=== PATIENT | female | born 1930 | race Caucasian/White ===

== ENCOUNTER 2017-01-06 08:45 | Emergency (ER) | payer MEDICARE ==
[~2017-01-06] VITALS: Ht 168.9 cm; Wt 87.3 kg
[~2017-01-06 08:45] MED LIST: ANTIOXIDENT PO; ASPI-973 PO; CALC-140 PO; CINN500C14 PO; FLUT9.9S NS; LEVO75TA4 PO; MULT1CAP33 PO; OXYB5TAB10 PO; PYR50 PO
[2017-01-06 08:47] VITALS: BP 137/76; PULSE 69; RESP 16; O2SAT 96
--- NOTE | 2017-01-06 09:19 | ED.REPORT ---
HPI-Extremity Problem Upper Date of Service Jan 06, 2017 ED Provider: Priscila Goldstein MD Patient is an 86 year old female with a hx of multiple cancers who presents to the ED complaining of R shoulder pain onset 2 days down. Her pain radiates down her R arm to her elbow. Associated symptoms include globalized weakness. Patient reports she was moving [employer] decorations out of her shed 3 days ago. She denies neck pain, back pain, falling, chest pain, SOB, nausea, vomiting, fever, diarrhea, or any other symptoms. She took 2 Vicodin at 0800 this morning without relief. Nursing Notes Stated Complaint: RT SHOULDER PAIN Chief Complaint: Extremity Trauma Nursing Notes Reviewed: Yes Allergies: Coded Allergies: No Known Allergies (Verified , 02/22/15) Scheduled ([antioxident capsule]) CAPSULE PO DAILY Aspirin (Aspirin) 81 Mg Tablet 81 MG PO DAILY Calcium Carbonate/Vitamin D3 (Calcium + Vitamin D Tablet) 1 Each Tablet 1 EACH PO DAILY Cinnamon Bark (Cinnamon) 500 Mg Capsule 500 MG PO DAILY Fluticasone Propionate (Flonase Allergy Relief) 50 Mcg/Actuation [place].susp 9.9 ML NS DAILY Levothyroxine (Levothyroxine) 75 Mcg Tablet 75 MCG PO DAILY Multivitamin (Multivitamins) 1 Each Capsule 1 EACH PO DAILY Oxybutynin Chloride (Oxybutynin Chloride) 5 Mg Tablet 5 MG PO DAILY Pyridoxine (Vitamin B-6) 50 Mg Tablet 50 MG PO DAILY General Time Seen by MD: 09:18 Chief Complaint Shoulder injury right Hx Obtained From: Patient, Spouse Arrived By: Walk-in Onset Occurred: 2 days ago Symptom Duration: Since onset Location: : Arm right: Elbow right: Shoulder right Quality: Painful Severity: Current: Moderate Severity: Maximum: Moderate Exacerbated by: Range of motion Relieved by: Rest Immunizations: Unknown Recent Healthcare: No recent doctor visit, No recent hospitalization Past Medical History Past Medical History multiple cancers including: breast, colon, and thyroid thyroid disease trigger thumbs Past Surgical History partial thyroidectomy Eye surgery x2 with 1 implant partial mastectomy Reports: Cholecystectomy, Hysterectomy Smoking History Former Smoker Social History Other Social History: Good social support, Ambulatory Status Independent Review of Systems Review of Systems Note: -recent falls Constitutional: Reports: Weakness - generalized, Denies: Fever Musculoskeletal: Reports: Extremity pain, Joint pain, Denies: Back pain, Neck pain Complete sys rev & neg: except as marked. Respiratory: Denies: Shortness of breath Cardiovascular: Denies: Chest pain GI: Denies: Diarrhea, Nausea, Vomiting Physical Exam Initial Vital Signs Vital Signs (First) Date Time Temp Pulse Resp B/P Pulse Ox O2 Delivery O2 Flow Rate FiO2 01/06/17 08:47 37.4 69 16 137/76 96 Room Air Initial VS: Reviewed, Vital signs normal Head / Eyes: Atraumatic, Normocephalic Skin: Warm, Dry Neurologic: Alert, Oriented, Nonfocal Psychiatric: Mood/affect normal, Behavior normal, Normal thought content General/Constitutional: Awake, Alert Neck: Atraumatic, Supple, Full range of motion Cervical spine movement normal, not limited by pain, does not reproduce pain No occipital insertion tenderness Respiratory / Chest: Atraumatic, Breath sounds NL, Breath sounds = bilat, No respiratory distress Cardiovascular: Heart rate NL, Regular rhythm, Heart sounds NL Upper Extremity / MS: Atraumatic Tenderness with internal and external rotation of shoulder. No pain with biceps flexion. No rash or skin cahgne Abdomen: Atraumatic, Soft, Non-tender, BS normoactive Back: Atraumatic Tender with spasm in the R trapezius. Anterior deltoid tenderness. Lower Extremity / Pelvis / MS: No edema Interpretation & Diagnostics Lab Results Interpretation Result Diagram: 01/06/17 1005 01/06/17 1005 Test 01/06/17 10:05 White Blood Count 9.5th/mm3 (3.8-10.1) Red Blood Count 4.25mil/mm3 (3.90-5.20) Hemoglobin 13.9g/dL (12.0-15.6) Hematocrit 40.6% (35.0-46.0) Mean Corpuscular Volume 95.5fL (81-100) Mean Corpuscular Hemoglobin 32.7pg (27.0-35.0) Mean Corpuscular Hemoglobin Concent 34.2% (32.0-37.0) Red Cell Distribution Width 13.2% (12.3-15.4) Platelet Count 139bil/L (150-400) Neutrophils (%) (Auto) 80.9% (40-74) Lymphocytes (%) (Auto) 8.6% (14-46) Monocytes (%) (Auto) 9.2% (4-12) Eosinophils (%) (Auto) 0.8% (0-5) Basophils (%) (Auto) 0.3% (0-3) Erythrocyte Sedimentation Rate 5mm/hr (0-40) Sodium Level 139mEq/L (134-144) Potassium Level 3.9mEq/L (3.5-5.2) Chloride Level 102mEq/L (97-108) Carbon Dioxide Level 20mmol/L (18-29) Blood Urea Nitrogen 12mg/dL (8-27) Creatinine 0.73mg/dL (0.57-1.00) Estimat Glomerular Filtration Rate 109mL/min (>59) Glucose Level 101mg/dL (60-99) Calcium Level 8.7mg/dL (8.5-10.1) Total Bilirubin 0.8mg/dL (0.0-1.2) Aspartate Amino Transf (AST/SGOT) 21U/L (0-50) Alanine Aminotransferase (ALT/SGPT) 12U/L (0-32) Alkaline Phosphatase 48U/L (25-165) Troponin T 0.010ug/L (0.0-0.011) C-Reactive Protein 1.9mg/dL (0.0-0.5) Total Protein 7.0g/dL (6.4-8.4) Albumin 3.9g/dL (3.4-5.0) ECG Interpretation ECG Interpretation: Sinus rate 78 no ischemia Time: 10:32 Interpreted by: ED physician X-Ray Chest Interpretation Chest Xray Interpretation: IMPRESSION: 1. No acute cardiopulmonary abnormality. 2. Surgical clips, unchanged. 3. Osteoarthritis both shoulders. Dictated by: Juaquin Ho M.D. on 01/06/2017 at 10:42 Approved by: Juaquin Ho M.D. on 01/06/2017 at 10:43 View: Portable, 1 view Interpretation / Wet Read by: Interpret - Radiologist X-Ray Interpretation Xray Interpretation: IMPRESSION: 1. No acute bony abnormality. 2. Osteoarthritis. Dictated by: Juaquin Ho M.D. on 01/06/2017 at 10:40 Approved by: Juaquin Ho M.D. on 01/06/2017 at 10:42 X-Ray Ordered: Shoulder right Interpretation / Wet Read by: Interpret - Radiologist Procedures Procedure Notes: Right shoulder steriod injection Indication: pain Verbal informed consent obtained 0.4 mL of lidocaine topically to the anterior shoulder Attempted aspiration of shoulder joint with 18-gauge needle- no return of fluid 40 mg of Kenalog and 1 mL of 1% lidocaine were injected into the right shoulder joint anterior approach without complication. Shoulder was much more mobile with significantly reduced pain within minutes of injection Patient tolerated the procedure well No blood loss Re-Eval/Medical Decision Re-Evaluation/Progress : Time of Eval: 11:46 Re-Evaluation/Progress Note: Rechecked pt who is feeling much better . Discussed lab, CT, and EKG results. Discussed plan for discharge. Patient understands and agrees with plan. All questions addressed at this time. Counseled Regarding: Diagnosis, Lab results, Need for follow-up, When/why to return to ED Discharge & Departure Impression: Primary Impression: Bursitis of shoulder, right Ruled Out: STEMI (ST elevation myocardial infarction), Septic joint, Osteolytic lesion due to metastasis, Multiple lesions of metastatic malignancy, Pneumothorax Discharge Condition All VS Reviewed: Yes Condition: Stable Additional Instructions: I think that you are right in that you injured your shoulder creating some bursitis and pain due to the repetitive movement and lifting you are doing this weekend Thank you for letting me be thorough and rule out all of the life-threatening reasons that you could have acute shoulder pain. I do not find evidence for heart attack, recurrent cancer, collapsed lung ,or acute joint infection I injected Kenalog (steroid)with some lidocaine (numbing medication) into the joint. Seemed to feel better immediately due to the numbing medication which makes me hopeful that the steroid is also going to be very helpful. If you feel that you are getting worse, develop any redness in that shoulder, or develop any new symptoms please return to the ER or talk with your primary care doctor I hope it gets better quickly Referrals: Isadora Matthews (PCP) [place] Attestation Portions of this note were transcribed by Rico Trujillo. I, Dr. Goldstein personally performed the history, physical exam and medical decision-making; I reviewed and confirmed the accuracy of the information in the transcribed note. Signed by: Jocelyne Swan, 01/06/17 copies to: Isadora Matthews Shawna L MD Jan 06, 2017 09:19 RICO TRUJILLO Jan 06, 2017 09:44
[2017-01-06] MEDS ORDERED: Triamcinolone Acet 40 mg/mL 5 mL Inj INTRARTICU ONE (09:50)
[2017-01-06] MEDS ORDERED: Ketorolac 15 mg/mL Inj IVPUSH ONE (09:50)
[2017-01-06 10:18] VITALS: BP 141/71; PULSE 76; RESP 14; O2SAT 94
[2017-01-06 10:18] LABS: BASOPHILS % (AUTO) 0.3 % (0-3); EOSINOPHILS % (AUTO) 0.8 % (0-5); MONOCYTES % (AUTO) 9.2 % (4-12); Mean Corpuscular Hemoglobin 32.7 pg (27.0-35.0); Mean Corpuscular Volume 95.5 fL (81-100); NEUTROPHILS % (AUTO) 80.9 % (40-74); Platelet Count 139 bil/L (150-400)
[2017-01-06 10:40] LABS: TROPONIN T 0.01 ug/L (0.0-0.011)
--- NOTE | 2017-01-06 10:44 | DRSVH ---
PROCEDURE: X-RAY RIGHT SHOULDER, MINIMUM TWO VIEWS ([id number]) INDICATIONS: acute pain TECHNIQUE: 3 views of the shoulder were acquired. COMPARISON: None. FINDINGS: Bones: No fractures or dislocations. No suspicious bony lesions. Visualized ribs appear intact. De generative a.c. joint disease. Prominent spur over the inferior margin of the glenoid could also repr esent glenohumeral joint disease. Soft tissues: No suspicious soft tissue calcifications. Numerous surgical clips at the thoracic inle t and also at the right lung base. IMPRESSION: 1. No acute bony abnormality. 2. Osteoarthritis. Dictated by: Juaquin Ho M.D. on 01/06/2017 at 10:40 Approved by: Juaquin Ho M.D. on 01/06/2017 at 10:42
--- NOTE | 2017-01-06 10:45 | DRSVH ---
PROCEDURE: X-RAY CHEST ONE VIEW, PORTABLE ([id number]) INDICATIONS: acute pain TECHNIQUE: One view of the chest was acquired. COMPARISON: 03/20/2013 FINDINGS: Surgical changes and devices: Surgical clips at the thoracic inlet and right lung base.. Lungs and pleura: No pleural effusions or pneumothorax. Mild elevation right hemidiaphragm. Lungs a re clear. Mediastinum: Mediastinal contours appear normal. Heart size is normal. Bones and chest wall: No suspicious bony lesions. Arthritic changes both shoulders. Overlying soft tissues appear unremarkable. IMPRESSION: 1. No acute cardiopulmonary abnormality. 2. Surgical clips, unchanged. 3. Osteoarthritis both shoulders. Dictated by: Juaquin Ho M.D. on 01/06/2017 at 10:42 Approved by: Juaquin Ho M.D. on 01/06/2017 at 10:43
[2017-01-06 10:50] LABS: ERYTHROCYTE SEDIMENTATION RATE 5 mm/hr (0-40)
[2017-01-06 12:09] VITALS: BP 130/75; PULSE 77; RESP 16; O2SAT 95
[2017-01-06 12:33] VITALS: BP 130/75; PULSE 77; RESP 16; O2SAT 95
== END 2017-01-06 12:33 | disposition home or self-care (01) ==
LOC: SED 08:45
DX: M75.51 Bursitis of right shoulder (principal); Z79.82 Long term (current) use of aspirin; Z87.891 Personal history of nicotine dependence; Z85.850 Personal history of malignant neoplasm of thyroid; Z85.038 Personal history of other malignant neoplasm of large intestine; Z85.3 Personal history of malignant neoplasm of breast
CPT/HCPCS: 20610; 36415; 71010; 73030; 80053; 84484; 85025; 85651; 86140; 93005; 96374; 99285; J1885